=== PATIENT | male | born 1945 | race Caucasian/White ===

== ENCOUNTER → 2018-07-03 | Outpatient (CLI) | payer MEDICARE ==
[~2018-07-03] VITALS: Ht 180.3 cm; Wt 66.0 kg
[~2018-07-03] MED LIST: AMLODIPINE BESY10 MG PO; LABETALOL HCL100 MG PO; LEVOXYL100 MCG PO; RENVELA800 MG PO; TUMS PO; VITAMIN D1000 UNI1 PO
[2018-07-03 11:27] VITALS: BP 160/94
--- NOTE | 2018-07-04 09:49 | OP ---
[address] [address] OPERATIVE REPORT Name: HOUSTON ARAUJO Room: [facility]#: [id number] Admission: 07/03/18 Attend Phys: Drew Miller DO Discharge: Date of : 41 Report #: [id number] THIS REPORT FOR: //name// CC: JEAN Miller Physician staff DATE OF SERVICE: 07/03/2018 PREOPERATIVE DIAGNOSES: 1. End-stage renal disease. 2. Thrombosed left upper extremity arteriovenous graft. POSTOPERATIVE DIAGNOSES: 1. End-stage renal disease. 2. Thrombosed left upper extremity arteriovenous graft. DESCRIPTION OF PROCEDURE: 1. Thrombolysis, left upper extremity AV graft. 2. Thrombectomy, left upper extremity AV graft. 3. Drug-coated balloon angioplasty venous outflow stenosis, AV graft. 4. Fistulogram, left upper extremity. FINDINGS: 1. AV graft is thrombosed. 2. After thrombectomy and thrombolysis, there is wide patency of the arterial anastomosis and the access ends of the graft. The venous anastomosis and venous outflow has significant stenosis. 3. After angioplasty, there is no further stenosis of the venous outflow or the venous anastomosis. 4. No central venous stenosis identified on central venogram. SURGEON: Alvaro Rousseau MD [employer] LIFEGUARD: Viraj Chandra, surgical product sales consultant. COMPLICATIONS: None. ESTIMATED BLOOD LOSS: 10 mL. SPECIMENS: None. ANESTHESIA: Local. INDICATIONS: The patient is a very pleasant 72-year-old white male with end-stage renal disease on dialysis. He has a left upper extremity AV graft. [address] [address] OPERATIVE REPORT Name: HOUSTON ARAUJO Room: [facility].#: [id number] Admission: 07/03/18 Attend Phys: Drew Miller DO Discharge: Date of : 41 Report #: [id number] This has a predilection to thrombosis every 2-3 months. He was noted to be rethrombosed today. He needs urgent dialysis today. DESCRIPTION OF PROCEDURE: Informed consent was obtained from the patient with risks including but not limited to bleeding, infection, need for further surgery, pain, , heart attack, stroke, embolization, steal syndrome. He understood these risks and was agreeable to proceed. The patient was taken to the angio suite, placed in supine position. The patient's left arm was prepped and draped in usual sterile fashion. Timeout was performed. I accessed the AV graft in an antegrade fashion after localizing with 1% lidocaine. We used Seldinger technique to exchange out for a 6-[place] sheath. Prior to going to the angio suite, I injected 2 mg of TPA throughout the AV graft in the preoperative holding area, allowed this to marinate for approximately one hour prior to performing fistula thrombectomy. There was a pulsatile thrill within the graft by the time I took him to the angio suite. After accessing the graft in antegrade fashion, I passed a wire up in central venous structures and noted that it did catch in the venous outflow tract at the location of the stenosis. I angioplastied and thrombectomized the entire AV graft and venous outflow using a 7 and then 9 mm balloon. I got good clearance of the venous clot. I accessed the graft in a retrograde fashion more proximally and passed a wire up into the brachial artery. I performed an arteriogram in this location. I inflated a 7 mm balloon and pulled it back into the AV graft, thus performing thrombectomy of the arterial limb. I got good clearance of the graft with this and no further thrombus on completion imaging. Now, I had palpable thrill throughout the fistula. I then performed drug-coated balloon angioplasty of the venous anastomosis and the venous outflow stenosis using a 10 x 60 Lutonix balloon. Completion imaging showed excellent result with resolution of stenosis at this location. I shot a central venogram. I shot an arteriogram with runoff. There was no embolization. I removed my sheaths and placed a 3-0 Monocryl in the skin. There was no bleeding or hematoma. The patient tolerated the procedure well, was taken alert and awake to recovery room in good condition. All needle and instrument counts were correct at the end of the case. He may use his graft today. We will plan for repeat fistulogram in 2 months given his predilection to re-thrombosis. He was also given a script for Plavix 75 mg 1 p.o. every day to be taken for 30 days. <ELECTRONICALLY SIGNED> By: Drew Miller DO 07/04/18 [id number] Rousseau MD /ole
== END | disposition home or self-care (01) ==
LOC: M.INT 10:37
DX: T82.868A Thrombosis due to vascular prosthetic devices, implants and grafts, initial encounter (principal); N18.6 End stage renal disease; I10 Essential (primary) hypertension; Z79.899 Other long term (current) drug therapy; Z90.49 Acquired absence of other specified parts of digestive tract; Z98.890 Other specified postprocedural states; Z87.891 Personal history of nicotine dependence; Y83.8 Other surgical procedures as the cause of abnormal reaction of the patient, or of later complication, without mention of misadventure at the time of the procedure; Y92.89 Other specified places as the place of occurrence of the external cause